=== PATIENT | male | born 1955 | race Caucasian/White ===

== ENCOUNTER 2016-10-23 10:38 | Emergency (ER) | payer MEDICARE ==
[~2016-10-23] VITALS: Ht 182.9 cm; Wt 87.0 kg
[2016-10-23] MEDS ORDERED: ALBUTEROL/IPRATROPIUM 2.5MG/0.5MG, 3 ML NPPB SCH (11:30)
[2016-10-23] MEDS ORDERED: methylPREDNISolone SOD SUCC 125 MG/2 ML IVP ONE (11:30)
[2016-10-23] MEDS ORDERED: SODIUM CHLORIDE FLUSH 10ML SYR IVF ONE (11:30)
[2016-10-23] MEDS ORDERED: methylPREDNISolone SOD SUCC 125 MG/2 ML ONE (11:38)
[2016-10-23] MEDS ORDERED: ALBUTEROL/IPRATROPIUM 2.5MG/0.5MG, 3 ML ONE (11:51)
[2016-10-23 12:17] LABS: HEMATOCRIT 50.9 % (39.2-51.8); HEMOGLOBIN 17.2 g/dL (13.7-18.0); WHITE BLOOD COUNT 12.9 x10^3/uL (3.4-10)
[2016-10-23 12:26] LABS: BLOOD UREA NITROGEN 14 mg/dL (7-18)
[2016-10-23 12:34] LABS: ASPARTATE AMINO TRANSFERASE 29 U/L (15-37); IS PT STATUS REG ER OR PRE ER? YES
[2016-10-23 13:59] VITALS: BP 134/77
== END 2016-10-23 14:02 | disposition home or self-care (01) ==
LOC: ED 11:25
DX: J96.01 Acute respiratory failure with hypoxia (principal); J44.1 Chronic obstructive pulmonary disease with (acute) exacerbation; I10 Essential (primary) hypertension; F17.210 Nicotine dependence, cigarettes, uncomplicated
CPT/HCPCS: 36415; 71010; 80053; 83605; 83880; 84484; 85025; 85379; 85610; 85730; 87040; 93005; 94640; 96374; 99285; J2930; J7620